=== PATIENT | female | born 1945 | race Caucasian/White ===

== ENCOUNTER 2017-06-06 09:17 | Emergency (ER) | payer MEDICARE ==
[~2017-06-06] VITALS: Ht 165.1 cm; Wt 68.0 kg
[2017-06-06 09:19] VITALS: BP 208/91; PULSE 84; RESP 16; TEMP 98.2; O2SAT 96
[2017-06-06 09:27] VITALS: BP 194/88; PULSE 83; RESP 16; O2SAT 98
--- NOTE | 2017-06-06 10:02 | PD ---
HPI Chief Complaint: Fall Time Seen by Provider: 10:01 Travel History International Travel<30 days: No Contact w/Intl Traveler<30days: No Traveled to known affect area: No History of Present Illness HPI 71-year-old female came to the emergency room with history of trip and fall yesterday after which she injured her face. Patient says that she tripped over some shoes and could not break her fall and ended up hitting her face straight on the floor. She had nosebleed soon after which she was able to control with pressure. She did apply some ice pack but today when she woke up she noticed that the face was very swollen and black and blue. This when she decided to come in. Patient is on 1 baby aspirin every day. She denies losing consciousness. She says this is purely from tripping over the shoes and not because she got dizzy or lightheaded or any syncopal episode. She was hypertensive when she arrived. Patient was awake and answering questions appropriately. Patient says she took Advil and Aleve last night for the pain. Patient is in pain currently and would like to have something for the pain preferably nonnarcotic. [facility] Past Medical History Narrative Medical List of her past medical, surgical, social and family history is reviewed from the nursing note. Hypertension: Yes ?: Not Past Surgical History Hysterectomy: Yes Social History Alcohol Use: Yes (WEEKENDS) Tobacco Use: No Substance Use: No Allergies-Medications (Allergen,Severity, Reaction): Coded Allergies: amoxicillin (Verified Allergy, Intermediate, Rash, 06/06/17) Comments List of her allergies reviewed from the nursing note. Reported Meds & Prescriptions Reported Meds & Active Scripts Active Reported [Blood Pressure Pill] 5 Mg PO DAILY Aspirin 81 (Aspirin) 81 Mg Tabdr 81 Mg PO DAILY Celebrex (Celecoxib) 50 Mg Cap Unknown Dose PO BID PRN Amlodipine (Amlodipine Besylate) 2.5 Mg Tab Unknown Dose PO DAILY Diovan (Valsartan) 40 Mg Tab Unknown Dose PO BID Narrative Medication List of her home medications reviewed from the nursing note. Review of Systems Except as stated in HPI: all other systems reviewed are Neg HENT: Positive: Other (facial contusion) Physical Exam Narrative GENERAL: Awake, alert, mild distress SKIN: Focused skin assessment warm/dry. Large left-sided facial contusion that is blue in color from the bruising and hematoma HEAD: Atraumatic. Normocephalic. EYES: Pupils equal and round. No scleral icterus. No injection or drainage. Left subconjunctival hemorrhage. Preserved conjugate eye movement ENT: No nasal bleeding or discharge. Mucous membranes pink and moist. Significant left facial over the malar prominence swelling and tenderness NECK: Trachea midline. No JVD. CARDIOVASCULAR: Regular rate and rhythm. No murmur appreciated. RESPIRATORY: No accessory muscle use. Clear to auscultation. Breath sounds equal bilaterally. GASTROINTESTINAL: Abdomen soft, non-tender, nondistended. Hepatic and splenic margins not palpable. MUSCULOSKELETAL: No obvious deformities. No clubbing. No cyanosis. No edema. NEUROLOGICAL: Awake and alert. No obvious cranial nerve deficits. Motor grossly within normal limits. Normal speech. PSYCHIATRIC: Appropriate mood and affect; insight and judgment normal. Data Data Last Documented VS Orders Orders Ct Facial Bones W/O Iv Cont (06/06/17 ) Ibuprofen (Motrin) (06/06/17 10:15) Ice/Cold Pack (06/06/17 10:14) Ed Discharge Order (06/06/17 10:52) [facility] Medical Decision Making Medical Screen Exam Complete: Yes Emergency Medical Condition: Yes Medical Record Reviewed: Yes Differential Diagnosis Facial bone fracture, nasal fracture, facial contusion Narrative Course 10:56 AM patient was given Motrin for the pain. I have given her an ice pack as well. CT scan of the face is negative for any acute fracture. I will discharge her home. Procedures EKG Prior to Arrival: No Diagnosis Primary Impression: Facial contusion Qualified Codes: S00.83XA - Contusion of other part of head, initial encounter Additional Impressions: Fall Qualified Codes: W19.XXXA - Unspecified fall, initial encounter Nasal contusion Qualified Codes: S00.33XA - Contusion of nose, initial encounter Referrals: Primary Care Physician Additional Instructions: Continue applying ice pack on the face. Take Motrin/Advil/ibuprofen for the pain. Eat soft diet since it might be painful to chew. Return to the ER if the condition worsens or any other new concerns. Med/Other Pt SpecificInfo: No Change to Meds Disposition: 01 DISCHARGE HOME Condition: Stable Prashant Blake MD Jun 06, 2017 10:02
[2017-06-06] MEDS ORDERED: AMLO2.5T PO (10:11)
[2017-06-06] MEDS ORDERED: CELE50CA PO (10:11)
[2017-06-06] MEDS ORDERED: DIOV40TA PO (10:11)
[2017-06-06] MEDS ORDERED: ASPI-110 PO (10:12)
[2017-06-06] MEDS ORDERED: BLOOD PRESSURE PILL PO (10:13)
[2017-06-06] MEDS ORDERED: IBUPROFEN 600 MG TAB PO ONE (10:15)
--- NOTE | 2017-06-06 10:45 | RADRPT ---
EXAM DATE/TIME: 06/06/2017 10:27 [facility] COMPARISON: No previous studies available for comparison. INDICATIONS : Fall , brusinig and swelling on the left side. RADIATION DOSE: 37.80 CTDIvol (mGy) MEDICAL HISTORY : Hypertension. SURGICAL HISTORY : Hysterectomy. ENCOUNTER: Initial ACUITY: 1 day PAIN SCORE: 4/10 LOCATION: Left facial TECHNIQUE: Volumetric scanning of the facial bones was performed. Using automated exposure control and adjustme nt of the mA and/or kV according to patient size, radiation dose was kept as low as reasonably achiev able to obtain optimal diagnostic quality images. DICOM format image data is available electronicall y for review and comparison. FINDINGS: ORBITS: The orbital and infraorbital osseous structures are intact. The retroconal structures have a normal configuration. No radiopaque foreign bodies are seen. NASAL BONE: The nasal bone and maxillary spine are intact ZYGOMATIC ARCHES: Symmetric without evidence of fracture. SINUSES: The maxillary, ethmoid and frontal sinuses are intact. No air-fluid levels seen. NASAL CAVITY: The nasal septum is intact and midline. The lacrimal ducts are intact. SOFT TISSUES: There is soft tissue swelling in the subcutaneous soft tissues along the left side of the face. There is a small focal hematoma in the subcutaneous soft tissues measuring 1.6 x 0.8 cm. The adjacent bony structures are intact. INTRACRANIAL: No intracranial air seen. CRIBIFORM PLATE: Grossly intact. CONCLUSION: 1. No acute bony fracture. 2. Soft tissue swelling in the subcutaneous soft tissues along the left side of the face along with a small focal subcutaneous hematoma measuring 1.6 x 0.8 cm. Charlie Jonas MD on June 06, 2017 at 10:41 Board Certified Radiologist. This report was verified electronically.
== END 2017-06-06 11:07 | disposition home or self-care (01) ==
LOC: NEPD 09:17
DX: S00.33XA Contusion of nose, initial encounter (principal); I10 Essential (primary) hypertension; W01.0XXA Fall on same level from slipping, tripping and stumbling without subsequent striking against object, initial encounter
CPT/HCPCS: 70486; 99284

== ENCOUNTER 2017-12-20 12:05 | Emergency (ER) | payer MEDICARE ==
[~2017-12-20 12:05] MED LIST: AMLO2.5T PO; ASPI1TAB57 PO; BLOOD PRESSURE PILL PO; CELE50CA PO; DIOV40TA PO
--- NOTE | 2017-12-20 12:16 | PD ---
HPI Chief Complaint: Fall Time Seen by Provider: 12:15 PFSH Past Medical History Hypertension: Yes Past Surgical History Hysterectomy: Yes Social History Alcohol Use: Yes (WEEKENDS) Tobacco Use: No Substance Use: No Allergies-Medications (Allergen,Severity, Reaction): Coded Allergies: amoxicillin (Verified Allergy, Intermediate, Rash, 06/06/17) Reported Meds & Prescriptions Reported Meds & Active Scripts Active Reported [Blood Pressure Pill] 5 Mg PO DAILY Aspirin 81 (Aspirin) 81 Mg Tabdr 81 Mg PO DAILY Celebrex (Celecoxib) 50 Mg Cap Unknown Dose PO BID PRN Amlodipine (Amlodipine Besylate) 2.5 Mg Tab Unknown Dose PO DAILY Diovan (Valsartan) 40 Mg Tab Unknown Dose PO BID Prashant Blake MD December 20, 2017 12:16
[2017-12-20] MEDS ORDERED: METO50TA PO (12:20)
[2017-12-20 12:24] VITALS: BP 182/77; PULSE 74; RESP 20; TEMP 97.8; O2SAT 97
--- NOTE | 2017-12-20 12:26 | PD ---
HPI Chief Complaint: Fall Time Seen by Provider: 12:15 Travel History International Travel<30 days: No Contact w/Intl Traveler<30days: No History of Present Illness HPI 72-year-old female presents to the emergency department via EMS for evaluation after a trip and fall that occurred just prior to arrival. Patient states that she tripped and fell on the sidewalk, falling and hitting her left face and side. Patient reports headache, facial pain, neck pain, left wrist and left knee pain. She has abrasion to the nose and left knee. She states her tetanus immunization is not up-to-date. Patient currently rates pain 5/10, worse with movement, alleviated with rest. She takes a baby aspirin every 3 days, but is not on any other anticoagulants. Patient denies any LOC. No chest pain or abdominal pain. No vomiting. She denies any hip or pelvic pain. She states she was able to stand to get on the stretcher. Moderate severity. PFSH Past Medical History High Cholesterol: Yes Diminished Hearing: No Hypertension: Yes Tetanus Vaccination: Unknown Influenza Vaccination: No ?: Not Past Surgical History Hysterectomy: Yes Social History Alcohol Use: Yes (OCC) Tobacco Use: No Substance Use: No Allergies-Medications (Allergen,Severity, Reaction): Coded Allergies: amoxicillin (Verified Allergy, Intermediate, Rash, 06/06/17) Reported Meds & Prescriptions Reported Meds & Active Scripts Active Patriot (Hydrocodone-Acetaminophen) 5 Mg-325 Mg Tab 1 Tab PO Q6H PRN Doxycycline Hyclate 100 Mg Cap 100 Mg PO BID Reported Metoprolol Tartrate 50 Mg Tab 50 Mg PO DAILY Aspirin 81 (Aspirin) 81 Mg Tabdr 81 Mg PO DAILY Amlodipine (Amlodipine Besylate) 2.5 Mg Tab Unknown Dose PO DAILY Diovan (Valsartan) 40 Mg Tab Unknown Dose PO BID Review of Systems Except as stated in HPI: all other systems reviewed are Neg Physical Exam Narrative GENERAL: Well-nourished, well-developed female patient, Afebrile. SKIN: Focused skin assessment warm/dry. Patient has abrasion to the nose and left anterior knee. HEAD: Normocephalic. EYES: No scleral icterus. No injection or drainage. PERRLA. ENT: Mucosa pink and moist. No erythema or exudates. No uvular edema. No uvular , palatal, or tonsillar deviation. Airway patent. Nasal turbinates appear normal without nasal blood, purulent drainage or septal hematoma. Bilateral tympanic membranes clear without erythema or perforation. NECK: Supple, trachea midline. No JVD or lymphadenopathy. CARDIOVASCULAR: Regular rate and rhythm without murmurs, gallops, or rubs. RESPIRATORY: Breath sounds equal bilaterally. No accessory muscle use. Lung sounds are clear to auscultation. GASTROINTESTINAL: Abdomen soft, non-tender, nondistended. No abdominal tenderness to palpation. MUSCULOSKELETAL: No cyanosis, or edema. Patient has tenderness over left dorsal and medial wrist. She has tenderness over left anterior knee. BACK: No obvious deformity. No CVA tenderness. Patient's tenderness to palpation or midline cervical spine. C-collar remains in place. Data Data Last Documented VS Vital Signs Date Time Temp Pulse Resp B/P (MAP) Pulse Ox O2 Delivery O2 Flow Rate FiO2 12/20/17 12:24 97.8 74 20 182/77 (112) [address] Brain W/O Iv Contrast(Rout) (12/20/17 ) Ct Cerv Spine W/O Contrast (12/20/17 ) Ct Facial Bones W/O Iv Cont (12/20/17 ) Wrist, Complete ([id number]) (12/20/17 ) Knee, Complete (4vws) (12/20/17 ) Acetaminophen (Tylenol) (12/20/17 12:30) Tetanus/Diphtheria Tox Adult (Tetanus/Di (12/20/17 12:30) Splint Or Brace Apply/Monitor (12/20/17 13:06) [employer] Request For Service (12/20/17 13:53) Wrist, Complete ([id number]) (12/20/17 ) Splint Or Brace Apply/Monitor (12/20/17 15:24) [facility] Medical Decision Making Medical Screen Exam Complete: Yes Emergency Medical Condition: Yes Medical Record Reviewed: Yes Interpretation(s) x-ray left knee CONCLUSION: Osteoarthritic findings of the knee. No evidence of fracture. x-ray left wrist - CONCLUSION: Distal radius fracture with mild dorsal angulation of the distal fragment. CT brain CONCLUSION: Air-fluid level in the left maxillary sinus. No acute intracranial findings. CT cervical spine CONCLUSION: No evidence of fracture. Multilevel degenerative findings. CT facial bones - CONCLUSION: Left orbital floor fracture. Small right-sided nasal bone fracture. x-ray of the right hand - CONCLUSION: 1. Age-indeterminate dorsal proximal row carpal bone fracture likely representing triquetrum fracture. 2. Prominent thumb CMC joint osteoarthritic findings. Differential Diagnosis Closed head injury versus intracranial hemorrhage versus facial contusion versus facial fracture versus wrist sprain versus fracture versus knee sprain versus fracture Narrative Course 72-year-old female presents to the emergency department via EMS for evaluation after a trip and fall. Tetanus immunization is updated. Patient is given Tylenol [address] for pain. CT of the brain, cervical spine, facial bones are ordered and pending. X-ray left wrist and left knee are ordered and pending. CT of the brain shows no acute intracranial finding. CT of the cervical spine shows no evidence of fracture. Ct of the facial bones shows left orbital floor fracture, small right-sided nasal bone fracture. On exam, EOMs are intact and there is no evidence of entrapment. X-ray of the left wrist shows distal radius fracture with mild dorsal angulation of the distal fragment. X-ray of the left knee shows no evidence of fracture. Patient states her right wrist is also hurting her I would like it to be x- rayed. X-ray of the right wrist is ordered and shows Age-indeterminate dorsal proximal row carpal bone fracture likely representing triquetrum fracture. 2. Prominent thumb CMC joint osteoarthritic findings. Patient is not tender over this area, therefore do not believe this is an acute fracture. However, patient placed in a Velcro wrist splint for support. Sugartong splint it applied to left wrist. I spoke to Dr. Stoll regarding orbital floor fracture. He would like patient to follow-up with him in the office on Friday. Like the patient to be discharged with antibiotics and sinus precautions. Patient is instructed to follow-up with Dr. Hanna, hand surgeon. She may also follow with Dr. Sapp if she prefers. Patient is aware. Diagnosis Primary Impression: Fracture of left orbital floor Qualified Codes: S02.32XA - Fracture of orbital floor, left side, initial encounter for closed fracture Additional Impressions: Fracture of left distal radius Qualified Codes: S52.502A - Unspecified fracture of the lower end of left radius, initial encounter for closed fracture Fracture of triquetrum of left wrist Qualified Codes: S62.115A - Nondisplaced fracture of triquetrum [cuneiform] bone, left wrist, initial encounter for closed fracture Referrals: Lydia Hanna MD,Jefferson Stoll,Bertrand Martinez DDS Patient Instructions: Facial Fracture (ED), General Instructions, Wrist Fracture in Adults (ED) Additional Instructions: Sinus precautions: -Do not blow your nose -Avoid sneezing, if you must knees keep her mouth open and do not pinch her nose closed -Avoid sucking, do not drink through a straw, do not smoke -Do not blow up balloons were playing wind instrument -Do not lift or push objects weighing more than 20 pounds -Keep her head above the level of your heart Take antibiotic as directed Take Patriot as directed as needed for pain. Cautioned this can make you drowsy so do not drive after taking. Follow-up with Dr. Patricio, craniofacial surgeon, on Friday. Follow-up with Dr. Hanna, hand surgeon or orthopedist, Dr. Sapp Return to the emergency department for any acute worsening of symptoms Med/Other Pt SpecificInfo: Prescription(s) given Scripts Hydrocodone-Acetaminophen (Patriot) 5 Mg-325 Mg Tab 1 TAB PO Q6H Y for PAIN, #12 TAB 0 Refills Prov: Tari Mendoza 12/20/17 Doxycycline Hyclate (Doxycycline Hyclate) 100 Mg Cap 100 MG PO BID for Infection, #20 CAP 0 Refills Prov: Tari Mendoza 12/20/17 Disposition: 01 DISCHARGE HOME Condition: Stable Tari Mendoza December 20, 2017 12:26
[2017-12-20] MEDS ORDERED: ACETAMINOPHEN 325 MG TAB PO ONE (12:30)
[2017-12-20] MEDS ORDERED: TETANUS/DIPHTHERIA TOXOID ADULT 0.5 ML VIAL IM ONE (12:30)
--- NOTE | 2017-12-20 12:56 | RADRPT ---
EXAM DATE/TIME: 12/20/2017 12:36 [facility] COMPARISON: No previous studies available for comparison. INDICATIONS : Fell today, left wrist area pain MEDICAL HISTORY : None. SURGICAL HISTORY : None. ENCOUNTER: Initial ACUITY: 1 day PAIN SCORE: 7/10 LOCATION: Left wrist FINDINGS: 3 views of the left wrist. Diffuse bone demineralization. Distal radius fracture with mild dorsal ang ulation of the distal fragment. Minimal displacement. Severe osteoarthritic findings of the thumb car pometacarpal joint. CONCLUSION: Distal radius fracture with mild dorsal angulation of the distal fragment. Gavin Guzman MD on December 20, 2017 at 12:54 Board Certified Radiologist. This report was verified electronically.
--- NOTE | 2017-12-20 12:57 | RADRPT ---
EXAM DATE/TIME: 12/20/2017 12:36 [facility] COMPARISON: No previous studies available for comparison. INDICATIONS : Fell today, has left knee area pain MEDICAL HISTORY : None. SURGICAL HISTORY : None. ENCOUNTER: Initial ACUITY: 1 day PAIN SCORE: 5/10 LOCATION: Left knee FINDINGS: 4 views of the left knee. Diffuse bone demineralization. Moderate-sized lateral compartment and merritt lofemoral compartment osteophytes. Small medial compartment osteophytes. Moderate patellofemoral comp artment narrowing. No evidence of fracture. Small joint effusion. CONCLUSION: Osteoarthritic findings of the knee. No evidence of fracture. Gavin Guzman MD on December 20, 2017 at 12:55 Board Certified Radiologist. This report was verified electronically.
--- NOTE | 2017-12-20 14:08 | RADRPT ---
EXAM DATE/TIME: 12/20/2017 13:40 [facility] COMPARISON: No previous studies available for comparison. INDICATIONS : Fall. Hit left side. RADIATION DOSE: 59.08 CTDIvol (mGy) MEDICAL HISTORY : Hypercholesterolemia. Hypertension. SURGICAL HISTORY : Hysterectomy. ENCOUNTER: Initial ACUITY: 1 day PAIN SCALE: 7/10 LOCATION: Left cranial TECHNIQUE: Multiple contiguous axial images were obtained of the head. Using automated exposure control and adj ustment of the mA and/or kV according to patient size, radiation dose was kept as low as reasonably a chievable to obtain optimal diagnostic quality images. DICOM format image data is available electro nically for review and comparison. FINDINGS: CEREBRUM: The ventricles are normal for age. No evidence of midline shift, mass lesion, hemorrhage or acute in farction. No extra-axial fluid collections are seen. POSTERIOR FOSSA: The cerebellum and brainstem are intact. The 4th ventricle is midline. The cerebellopontine angle i s unremarkable. EXTRACRANIAL: Moderate-sized air-fluid level in the left maxillary sinus. SKULL: The calvaria is intact. No evidence of skull fracture. CONCLUSION: Air-fluid level in the left maxillary sinus. No acute intracranial findings. Gavin Guzman MD on December 20, 2017 at 14:05 Board Certified Radiologist. This report was verified electronically.
--- NOTE | 2017-12-20 14:16 | RADRPT ---
EXAM DATE/TIME: 12/20/2017 13:40 [facility] COMPARISON: CT FACIAL BONES W/O CONTRAST, June 06, 2017, 10:27. INDICATIONS : Fall. Hit left side. Nasal bone pain. RADIATION DOSE: 26.65 CTDIvol (mGy) MEDICAL HISTORY : Hypercholesterolemia. Hypertension. SURGICAL HISTORY : Hysterectomy. ENCOUNTER: Initial ACUITY: 1 day PAIN SCORE: 6/10 LOCATION: Left facial TECHNIQUE: Volumetric scanning of the facial bones was performed. Using automated exposure control and adjustme nt of the mA and/or kV according to patient size, radiation dose was kept as low as reasonably achiev able to obtain optimal diagnostic quality images. DICOM format image data is available electronicUNYQ y for review and comparison. FINDINGS: There is a small minimally displaced right-sided nasal bone fracture. Left-sided orbital floor fractu re is identified with up to 6 mm focal bony depression at the central left orbital floor. Fracture ex tends through the region of the infraorbital foramen. Moderate size left maxillary sinus air-fluid le blanquita. The fracture does not involve the orbital rim. No other fractures identified. Paranasal sinuses otherwise clear. Globes are round and symmetric. No displacement of extraocular muscles. CONCLUSION: Left orbital floor fracture. Small right-sided nasal bone fracture. Gavin Guzman MD on December 20, 2017 at 14:08 Board Certified Radiologist. This report was verified electronically.
--- NOTE | 2017-12-20 14:27 | RADRPT ---
EXAM DATE/TIME: 12/20/2017 13:40 [facility] COMPARISON: No previous studies available for comparison. INDICATIONS : Fall. Left sided pain. RADIATION DOSE: 25.67 CTDIvol (mGy) MEDICAL HISTORY : Hypercholesterolemia. Hypertension. SURGICAL HISTORY : Hysterectomy. ENCOUNTER: Initial ACUITY: 1 day PAIN SCALE: 7/10 LOCATION: Left neck TECHNIQUE: Volumetric scanning of the cervical spine was performed. Multiplanar reconstructions in the sagittal, coronal and oblique axial planes were performed. Using automated exposure control and adjustment o f the mA and/or kV according to patient size, radiation dose was kept as low as reasonably achievable to obtain optimal diagnostic quality images. DICOM format image data is available electronically f or review and comparison. FINDINGS: VERTEBRAE: Normal vertebral body height. ALIGNMENT: 2 mm anterolisthesis C4 on C5. 2 mm retrolisthesis C5 on C6. C2-C3: Severe left-sided facet arthrosis. Central canal diameter within normal limits. Mild left eral forami nal narrowing. C3-C4: Severe bilateral facet arthrosis. Moderate left and mild right neural foraminal narrowing. Central ca nal diameter within normal limits. C4-C5: Severe bilateral facet arthrosis right greater than left. Moderate left and mild right neural foramin al narrowing. Broad-based disc osteophyte complex. Central canal diameter within normal limits. C5-C6: Broad-based disc osteophyte complex and mild bilateral facet arthrosis. Severe left and moderate righ t neural foraminal narrowing. Moderate severity central canal narrowing. C6-C7: Broad-based disc osteophyte complex and mild bilateral facet arthrosis. Moderate left neural foramina l narrowing. Mild to moderate central canal narrowing. C7-T1: Bilateral facet arthrosis. Central canal and neuroforaminal diameters within normal limits. CONCLUSION: No evidence of fracture. Multilevel degenerative findings. Gavin Guzman MD on December 20, 2017 at 14:21 Board Certified Radiologist. This report was verified electronically.
[2017-12-20] MEDS ORDERED: NORC5TAB PO (14:42)
[2017-12-20] MEDS ORDERED: DOXY100C PO (14:42)
--- NOTE | 2017-12-20 15:15 | RADRPT ---
EXAM DATE/TIME: 12/20/2017 14:58 [facility] COMPARISON: No previous studies available for comparison. INDICATIONS : Pain due to fall. MEDICAL HISTORY : Hypercholesterolemia. Hypertension. Arthritis. SURGICAL HISTORY : Hysterectomy. ENCOUNTER: Initial ACUITY: 1 day PAIN SCORE: 10 LOCATION: Right upper extremity wrist FINDINGS: 3 views right wrist. Nondisplaced mildly comminuted dorsal carpal bone fracture is seen on the latera l view likely represent a dorsal triquetrum fracture. Prominent osteoarthritic findings of the thumb carpometacarpal joint. CONCLUSION: 1. Age-indeterminate dorsal proximal row carpal bone fracture likely representing triquetrum fracture . 2. Prominent thumb CMC joint osteoarthritic findings. Gavin Guzman MD on December 20, 2017 at 15:12 Board Certified Radiologist. This report was verified electronically.
== END 2017-12-20 15:47 | disposition home or self-care (01) ==
LOC: PHEFT 12:05
DX: S02.32XA Fracture of orbital floor, left side, initial encounter for closed fracture (principal); S02.2XXA Fracture of nasal bones, initial encounter for closed fracture; S52.502A Unspecified fracture of the lower end of left radius, initial encounter for closed fracture; S62.115A Nondisplaced fracture of triquetrum [cuneiform] bone, left wrist, initial encounter for closed fracture; S80.212A Abrasion, left knee, initial encounter; W01.0XXA Fall on same level from slipping, tripping and stumbling without subsequent striking against object, initial encounter; Y92.480 Sidewalk as the place of occurrence of the external cause; I10 Essential (primary) hypertension; Z23 Encounter for immunization
CPT/HCPCS: 29125; 70450; 70486; 72125; 73110; 73564; 90471; 90714; 99284; L3908